=== PATIENT | female | born 1985 | race Caucasian/White ===

== ENCOUNTER 2017-09-22 02:40 | Emergency (ER) | payer SELFPAY ==
[2017-09-22] MEDS ORDERED: diphenhydrAMINE HCL 50 MG/ML VIAL ONE (04:16)
[2017-09-22] MEDS ORDERED: PROCHLORPERAZINE EDISYLATE 5 MG/ML VIAL ONE (04:16)
--- NOTE | 2017-09-22 04:19 | ERNOTE ---
Abdominal HPI - General Chief Complaint: Abdominal Pain Time Seen by Provider: 09/22/17 03:09 Source: patient, family Exam Limitations: clinical condition - Immun/Allergies/Home Medications Immunizatons: IMMUNIZATION HX Immunizations Up to Date Yes History of Influenza Vaccine Yes Hx Pneumococcal Vaccination Yes Allergies/Adverse Reactions: Allergies metoclopramide HCl [From Reglan] Allergy (Verified 02/13/16 21:45) Other morphine Allergy (Verified 02/13/16 21:45) Hives Penicillins Allergy (Verified 02/13/16 21:45) tramadol Allergy (Verified 02/13/16 21:45) Other codeine phosphate [From Tylenol-Codeine #3] Adverse Reaction (Verified 02/13/16 21:45) Other ketorolac tromethamine [From Toradol] Adverse Reaction (Verified 02/13/16 21:45) Hives NSAIDS (Non-Steroidal Anti-Inflamma Adverse Reaction (Verified 02/13/16 21:45) Other Home Medications: HOME MEDICATIONS Omeprazole [Prilosec] 40 mg PO BID #30 capsule. 01/17/15 [Last Taken Unknown] Ondansetron HCl [Zofran] 4 mg PO BID PRN #40 tab 01/28/15 [Last Taken Unknown] Promethazine HCl [Phenergan (Promethazine)] 25 mg PO QID PRN #30 tab 05/11/15 [ Last Taken Unknown] Sucralfate [Carafate] 1 gm PO Q4H 05/11/15 [Last Taken Unknown] HYDROcodone/ACETAMINOPHEN [[place] 5-325] 1 each PO Q6H PRN #8 tablet 01/02/16 [ Last Taken Unknown] Dicyclomine HCl [Bentyl] 10 - 20 mg PO TID #180 tab 02/14/16 [Last Taken Unknown ] Nitrofurantoin/Nitrofuran Mac [Macrobid] 100 mg PO Q12H #10 cap 02/14/16 [Last Taken Unknown] - History of Present Illness Narrative: Pt has chronic abdominal problems due to [id number] gastric bypass done in 2008. since then she has had revisions due to ulcers and other complications of her initial surgery. She has had increasing pain in the past few weeks and was seen in the ED near her home in [place] [address] showed a 45mm round, well circumscribed fluid collection near the adrenal gland on the left kidney. There was no inflammation, free air or ileus. Pt was referred to the [facility] and her appointment is in December. Pt states the pain in increasing and she can no longer deal with the pain Timing: getting worse Quality: moderate, severe, sharpness, stabbing Prior Abdominal Problems: Present: similar symptoms Prior Treatment: Present: recently seen, treated by physician Review of Systems - Review of Systems Constitutional: Present: recent illness, chills. Absent: fever EYE: Present: no symptoms reported ENT: Present: no symptoms reported Respiratory: Present: shortness of breath Cardiology: Absent: chest pain Gastrointestinal/Abdominal: Present: See HPI, nausea Genitourinary: Absent: frequency, pain Musculoskeletal: Present: back pain, muscle pain Skin: Present: no symptoms reported Neurological: Present: no symptoms reported Endocrine: Present: no symptoms reported Hematologic/Lymphatic: Present: no symptoms reported Psych: Present: no symptoms reported - Patient's Past Medical History Patient History - Medical: Fibromyalgia, Other Patient History - Cardiac/Respiratory: No pertinent hx Patient History - Cancer: No Hx of Cancer Patient History - Surgical Procedures: Cholecystectomy, , Gastric Bypass, T & A Patient History - Other: None LMP (females 10-50): now - Social History Living Situations: significant other Abuse History: No History of abuse Psych History: No pertinent hx Smoking Status: Former smoker Have you smoked in the past 12 months: No Do you dip or chew tobacco: No Alcohol Use: none Drug Use: none - Immunizations Immunizations Up to Date: Yes Hx Pneumococcal Vaccination: Yes History of Influenza Vaccine: Yes Physical Exam - Physical Exam General Appearance: Present: wd/wn, alert, mild distress Head Exam: Present: normal inspection, no evidence of injury Neck: Present: normal inspection, nontender Respiratory: Present: no respiratory distress, normal breath sounds, lungs clear Cardiovascular/Chest: Present: regular rate, rhythm, no murmur Gastrointestinal/Abdominal: Present: normal bowel sounds, tenderness, guarding, rebound - LUQ Back Exam: Present: CVA tenderness (L). Absent: CVA tenderness (R) Extremity Exam: Present: normal inspection, normal range of motion Neurological Exam: Present: alert, oriented, no motor/sensory deficits Skin Exam: Present: normal color, warm/dry Lymphatic Exam: Present: no adenopathy ED Progress - Results and Orders Patient's Lab Results:: I have reviewed the patient's lab results. Results and Orders: Laboratory Tests 09/22/17 09/22/17 09/22/17 04:15 04:30 04:30 WBC 7.5 Hgb 10.3 L Hct 32.9 L Plt Count 289 ESR Sodium 142 Potassium 3.8 Chloride 108 H Carbon Dioxide 27.6 Anion Gap 10.2 BUN 7 Creatinine 0.94 Random Glucose 84 Calcium Adj for Albumin 8.4 Total Bilirubin 0.1 AST 14 ALT 19 Alkaline Phosphatase 73 C-Reactive Prot, Quant Less than 0.2 Total Protein 6.9 Albumin 3.4 Amylase 62 Lipase 119 Serum HCG, Qual Urine Color Pale yellow Urine Appearance Clear Urine pH 6.5 Ur Specific [place] 1.010 Urine Protein Negative Urine Glucose (UA) Negative Urine Ketones Negative Urine Blood 25 H Urine Nitrate Negative Urine Bilirubin Negative Urine Urobilinogen Normal Ur Leukocyte Esterase Negative Urine RBC 0-5 Urine WBC None seen Ur Epithelial Cells 0-5 Urine Bacteria Trace Urine Culture Comments No culture indicated 09/22/17 09/22/17 04:30 04:30 WBC Hgb Hct Plt Count ESR 22 H Sodium Potassium Chloride Carbon Dioxide Anion Gap BUN Creatinine Random Glucose Calcium Adj for Albumin Total Bilirubin AST ALT Alkaline Phosphatase C-Reactive Prot, Quant Total Protein Albumin Amylase Lipase Serum HCG, Qual Negative Urine Color Urine Appearance Urine pH Ur Specific [place] Urine Protein Urine Glucose (UA) Urine Ketones Urine Blood Urine Nitrate Urine Bilirubin Urine Urobilinogen Ur Leukocyte Esterase Urine RBC Urine WBC Ur Epithelial Cells Urine Bacteria Urine Culture Comments - Vital Signs Patient's Vital Signs:: I have reviewed the patient's vital signs. Vital Signs: Vital Signs 09/22/17 02:44 Temperature 36.0 C L Pulse Rate 86 Respiratory 16 Rate Blood Pressure 133/75 O2 Sat by Pulse 100 Oximetry - Progress/Reassessment Chief Complaint: Abdominal Pain Progress:: Improved Progress Note-Subjective: 09/22/17 05:40 Pt states she received a call that her children were sick at home and she needed to leave. Pt signed out AMA. Departure Clinical Impression: Abdominal pain Qualifiers: Abdominal location: left upper quadrant Qualified Code(s): R10.12 - Left upper quadrant pain - Departure Disposition: Against medical advice Condition: Good
[2017-09-22] MEDS ORDERED: DIATRIZOATE MEGLUMINE, SODIUM 30 ML BTL ONE (04:28)
[2017-09-22] MEDS: diphenhydrAMINE HCL 50 MG/ML VIAL IV ONE (04:33)
[2017-09-22] MEDS: NORMAL SALINE 1,000 ML IV ONE (04:33)
[2017-09-22] MEDS: PROCHLORPERAZINE EDISYLATE 5 MG/ML VIAL IV ONE (04:34)
[2017-09-22] MEDS: PANTOPRAZOLE SODIUM 40 MG in NORMAL SALINE 100 ML IV ONE (04:37)
[2017-09-22] MEDS: DIATRIZOATE MEGLUMINE, SODIUM 30 ML BTL PO ONE (04:38)
[2017-09-22 04:45] LABS: Hematocrit 32.9 % (37.0-47.0); Hemoglobin 10.3 gm/dL (12.5-16.0); Mean Cell Volume 98.2 fl (78-100); Mean Corpuscular Hemoglobin 30.7 pg (27-31); Mean Corpuscular Hgb Conc 31.3 g/dl (32-36); Mean Platelet Volume 10.3 fl (6.0-9.5); Neutrophil # 3.3 K/mm3 (1.3-6.0); Neutrophil % 44.8 % (42-75.0); Platelet Count 289 K/mm3 (150-450); Red Blood Count 3.35 M/mm3 (4.2-5.4); Red Cell Distribution Width 15.3 % (11.5-14.0); White Blood Count 7.5 K/mm3 (4.0-10.5)
[2017-09-22 04:46] LABS: Urine Bilirubin Negative (NEGATIVE); Urine Blood 25 /ul (NEGATIVE); Urine Ketone Negative (NEGATIVE); Urine Nitrite Negative (NEGATIVE); Urine Protein Negative (NEGATIVE); Urine Urobilinogen Normal (NORMAL); Urine pH 6.5 pH (5.0-7.0)
[2017-09-22 04:56] LABS: Urine Appearance Clear; Urine Bacteria TRACE; Urine Color Pale Yellow; Urine RBC 0-5 /hpf (0-5); Urine WBC None Seen /hpf (0-5)
[2017-09-22 04:57] LABS: ALT 19 U/L (19-67); AST 14 U/L (0-48); Albumin * 3.4 gm/dl (3.4-5.0); Alkaline Phosphatase * 73 U/L (50-170); Amylase * 62 U/L (25-115); Anion Gap 10.2 mmol/L (6.8-13.8); BUN/Creatinine Ratio 7.4 (9.0-21.6); Bilirubin, Total 0.1 mg/dL (0.0-1.1); Blood Urea Nitrogen 7 mg/dL (3-23); Ca. Corrected For Albumin 8.4 mg/dL (8.4-10.2); Calcium * 8.2 mg/dL (7.9-10.9); Carbon Dioxide 27.6 mmol/L (24-32.6); Chloride 108 mmol/L (97-106); Glucose * 84 mg/dL (70-110); Lipase 119 U/L (73-393); Potassium 3.8 mmol/L (3.4-4.6); Sodium 142 mmol/L (132-142); Total Protein 6.9 gm/dL (6.2-8.2)
[2017-09-22] MEDS ORDERED: NALBUPHINE HCL 20 MG/ML AMPUL ONE (05:08)
[2017-09-22] MEDS: NALBUPHINE HCL 20 MG/ML AMPUL IV ONE (05:12)
[2017-09-22 08:41] VITALS: BP 124/70
== END 2017-09-22 05:36 | disposition left against medical advice (07) ==
LOC: ER 02:40
DX: R10.12 Left upper quadrant pain (principal); Z53.21 Procedure and treatment not carried out due to patient leaving prior to being seen by health care provider; Z98.84 Bariatric surgery status